=== PATIENT | male | born 1955 | race Caucasian/White ===

== ENCOUNTER 2019-02-09 20:00 | Emergency (ER) | payer MEDICARE, OTHER ==
[2019-02-09 20:55] VITALS: BP 171/88
[2019-02-09] MEDS ORDERED: Tetan/Diph/Pertus SYR(Tdap)* 0.5 ML SYR(BOOSTRIX) use SYR IM ONE (21:05)
--- NOTE | 2019-02-09 21:05 | UC ---
General HPI - HPI Summary HPI Summary: pt stepped on a loose board the came up and hit him in the L crenshaw 2 days ago. yesterday, he developed a blister in the center of the bruise. he denies fever. - History of Current Complaint Chief Complaint: UCLowerExtremity Stated Complaint: LT LEG INJURY S/P FALL 02/07 Time Seen by Provider: 02/09/19 20:58 Hx Obtained From: Patient, Family/Public Health Assistant Pain Intensity: 3 Associated Signs & Symptoms: Negative: Fever - Allergy/Home Medications Allergies/Adverse Reactions: Allergies Allergy/AdvReac Type Severity Reaction Status Date / Time No Known Allergies Allergy Verified 02/09/19 20:32 Home Medications: Home Medications Acetaminophen [Acetaminophen Extra Strength] 1,500 mg PO ONCE PRN 02/09/19 [ History Confirmed 02/09/19] Allopurinol TAB* [Zyloprim 100 MG TAB*] 200 mg PO DAILY 02/09/19 [History Confirmed 02/09/19] Aspirin [Aspir-Low] 81 mg PO DAILY 02/09/19 [History Confirmed 02/09/19] Atorvastatin* [Lipitor*] 20 mg PO QPM 02/09/19 [History Confirmed 02/09/19] Cholecalciferol (Vitamin D3) [Vitamin D3] 1,000 unit PO DAILY 02/09/19 [History Confirmed 02/09/19] Insulin Detemir (NF) [Levemir (NF)] 70 unit SUBCUT DAILY 02/09/19 [History Confirmed 02/09/19] Insulin NPH Hum/Reg Insulin Hm [Novolin 70-30 Flexpen] 3 ml SQ TID 02/09/19 [ History Confirmed 02/09/19] Lisinopril 40 mg PO BID 02/09/19 [History Confirmed 02/09/19] Pioglitazone HCl 30 mg PO DAILY 02/09/19 [History Confirmed 02/09/19] PMH/Surg Hx/FS Hx/Imm Hx - Additional Past Medical History Additional PMH: Gout Endocrine History: Diabetes, Dyslipidemia Cardiovascular History: Hypertension - Surgical History Surgical History: Yes Surgery Procedure, Year, and Place: Stents. Right foot injury - Family History Known Family History: Positive: Non-Contributory - Social History Alcohol Use: Rare Substance Use Type: None Smoking Status (MU): Never Smoked Tobacco - Immunization History Hx Tetanus, Diphtheria Vaccination: No Vaccination Up to Date: Yes Review of Systems All Other Systems Reviewed And Are Negative: No Constitutional: Negative: Fever Skin: Positive: Bruising - L crenshaw Musculoskeletal: Positive: Edema - BLE's-chronic, Other: - L crenshaw pain. Negative: Arthralgia Physical Exam Triage Information Reviewed: Yes Appearance: Well-Appearing Vital Signs: Initial Vital Signs Temp 98.1 F 02/09/19 20:43 Pulse 61 02/09/19 20:43 Resp 20 02/09/19 20:43 BP 171/88 02/09/19 20:43 Pulse Ox 100 02/09/19 20:43 Vital Signs Reviewed: Yes Eyes: Positive: Conjunctiva Clear Neck: Positive: Supple Respiratory: Positive: No respiratory distress Musculoskeletal: Positive: Other: - LLE: hip and knee are non tender. L crenshaw has a 4" area of bruising with a quarter size serous filled blister but no erythema or warmth. the crenshaw is tender to palpation. Mild pitting to lower legs( chronic) s/v/m to LLE is intact. Neurological: Positive: Alert Psychological: Positive: Age Appropriate Behavior Skin Exam: Normal Diagnostics - Radiology No standard instances Radiology Interpretation Completed By: ED Physician - l TIB/FIB=NAD Course/Dx - Differential Dx - Multi-Symptom Differential Diagnoses: Other - NO FX OR INFECTION. HX iddm, SOFT TISSUE CRENSHAW INJURY WITH EVOLVING BLISTER THUS WILL TX WITH BACTROBAN AND KELFEX PLUS CLOSE F /U - Diagnoses Provider Diagnosis: Contusion, Blister of leg, left Discharge - Sign-Out/Discharge Documenting (check all that apply): Patient Departure All imaging exams completed and their final reports reviewed: No - Discharge Plan Condition: Stable Disposition: HOME Prescriptions: Cephalexin CAP* [Keflex CAP*] 500 mg PO TID 7 Days #21 cap Mupirocin 2% OINT* [Bactroban 2 % Oint*] 1 applic TOPICAL BID 7 Days #1 tube Patient Education Materials: Contusion in Adults (ED), Blister (ED) Referrals: Jose De Jesus Healy MD [Primary Care Provider] - 5 Days - Billing Disposition and Condition Condition: STABLE Disposition: Home
[2019-02-09] MEDS ORDERED: Cephalexin CAP* 500 MG PO ONE (21:23)
--- NOTE | 2019-02-10 09:55 | UC ---
Course/Dx - Diagnoses Provider Diagnoses: Contusion, Blister of leg, left Discharge - Sign-Out/Discharge Documenting (check all that apply): Post-Discharge Follow Up All imaging exams completed and their final reports reviewed: Yes - Discharge Plan Condition: Stable Disposition: HOME Prescriptions: Cephalexin CAP* [Keflex CAP*] 500 mg PO TID 7 Days #21 cap Mupirocin 2% OINT* [Bactroban 2 % Oint*] 1 applic TOPICAL BID 7 Days #1 tube Patient Education Materials: Contusion in Adults (ED), Blister (ED) Referrals: Jose De Jesus Healy MD [Primary Care Provider] - 5 Days - Billing Disposition and Condition Condition: STABLE Disposition: Home
== END 2019-02-09 21:38 | disposition home or self-care (01) ==
LOC: UCCORT 20:00
DX: S80.822A Blister (nonthermal), left lower leg, initial encounter (principal); S80.12XA Contusion of left lower leg, initial encounter; W22.8XXA Striking against or struck by other objects, initial encounter; Y92.9 Unspecified place or not applicable; Z23 Encounter for immunization; E11.9 Type 2 diabetes mellitus without complications; I10 Essential (primary) hypertension; E78.5 Hyperlipidemia, unspecified; M10.9 Gout, unspecified; Z79.82 Long term (current) use of aspirin; Z79.4 Long term (current) use of insulin; Z79.899 Other long term (current) drug therapy; X58.XXXA Exposure to other specified factors, initial encounter
CPT/HCPCS: 90471; 90715; 99202; A9270-GY; G0463

== ENCOUNTER 2019-05-25 10:45 | Inpatient (IN) | payer MEDICARE, OTHER ==
[2019-05-25 12:11] LABS: ABS Basophils 0.1 10^3/ul (0-0.2); ABS Eosinophils 0.1 10^3/ul (0-0.6); ABS Lymphocytes 2.1 10^3/ul (1.0-4.8); ABS Monocytes 0.6 10^3/ul (0-0.8); Eosinophil % 0.9 %; Hematocrit 42 % (42-52); Hemoglobin 14.5 g/dL (14.0-18.0); Lymphocyte % 24.2 %; Mean Corpuscular HGB Conc 35 g/dL (31-36); Mean Corpuscular Hemoglobin 30 pg (27-31); Mean Corpuscular Volume 86 fL (80-94); Mean Platelet Volume 7.6 fL (7.4-10.4); Nucleated Red Blood Cells % 0.1; Platelet Count 178 10^3/uL (150-450); Red Blood Count 4.85 10^6 /uL (4.18-5.48); Red Cell Distribution Width 14 % (10-15); White Blood Count 8.9 10^3/uL (3.5-10.8)
[2019-05-25 12:27] LABS: ALT 16 U/L (7-52); AST 13 U/L (13-39); Albumin 3.9 g/dL (3.2-5.2); Albumin/Globulin Ratio 1.4 (1-3); Alkaline Phosphatase 76 U/L (34-104); Anion Gap 5 mmol/L (2-11); BUN/Creatinine Ratio 12.5 (8-20); Blood Urea Nitrogen 17 mg/dL (6-24); CO2 Carbon Dioxide 26 mmol/L (22-32); Calcium 8.6 mg/dL (8.6-10.3); Chloride 106 mmol/L (101-111); EGFR African American 63.6 (>60); EGFR Non-African American 52.6 (>60); Globulin 2.8 g/dL (2-4); Glucose 130 mg/dL (70-100); Potassium 4.3 mmol/L (3.5-5.0); Sodium 137 mmol/L (135-145); Total Protein 6.7 g/dL (6.4-8.9)
[2019-05-25 12:40] LABS: Acetaminophen < 15 mcg/mL; Alcohol < 10 mg/dL (<10); Salicylate < 2.50 mg/dL (<30)
[2019-05-25 12:44] LABS: Urine Appearance Clear; Urine Bilirubin Negative (Negative); Urine Blood Negative (Negative); Urine Color Yellow; Urine Glucose Negative (Negative); Urine Ketones Negative (Negative); Urine Nitrite Negative (Negative); Urine Protein Negative (Negative); Urine Specific Gravity 1.011 (1.010-1.030); Urine Urobilinogen Negative (Negative)
--- NOTE | 2019-05-25 12:52 | ED ---
Altered Mental Status - HPI Summary HPI Summary: Pt is a 64 y/o M presenting to the ED with a chief complaint of confusion. He states he is confused, nervous, and scared, and it has been worse for the past week, since he was d/gianluca from the [facility]. He believes he is going to be thrown out of his apartment. HE reports a mild headache, some neck pain, and sleep disturbance. He denies abd pain, back pain, SI/HI, or drug/alcohol use. He has also had recent medication changes. - History Of Current Complaint Chief Complaint: EDMentalHealth Stated Complaint: MHE PER EMS Time Seen by Provider: 05/25/19 10:48 Hx Obtained From: Patient Onset/Duration: Still Present, Gradually Timing: Constant, Lasting Weeks Severity Initially: Moderate Severity Currently: Moderate Character: Confusion Aggravating Factor(s): Unknown Alleviating Factor(s): Unknown - Allergies/Home Medications Allergies/Adverse Reactions: Allergies Allergy/AdvReac Type Severity Reaction Status Date / Time No Known Allergies Allergy Verified 05/25/19 10:52 Home Medications: Home Medications Carvedilol 3.125 mg PO BID 05/25/19 [History Confirmed 05/25/19] Cholecalciferol (Vitamin D3) [Vitamin D3] 1 tab PO DAILY 05/25/19 [History Confirmed 05/25/19] Insulin ASPART (NF) [Novolog (NF)] 34 units SUBCUT TID 05/25/19 [History Confirmed 05/25/19] Isosorbide Mononitrate [Isosorbide Mononitrate ER] 30 mg PO DAILY 05/25/19 [ History Confirmed 05/25/19] Losartan Potassium [Cozaar] 50 mg PO DAILY 05/25/19 [History Confirmed 05/25/19] Sertraline HCl [Zoloft] 12.5 mg PO BEDTIME 05/25/19 [History Confirmed 05/25/19] PMH/Surg Hx/FS Hx/Imm Hx Previously Healthy: Yes Endocrine/Hematology History: Reports: Hx Diabetes Cardiovascular History: Reports: Hx Hypertension Psychiatric History: Reports: Hx Post Traumatic Stress Disorder - Surgical History Surgery Procedure, Year, and Place: Stents. Right foot injury Infectious Disease History: No Infectious Disease History: Denies: Traveled Outside the [place] in Last 30 Days - Family History Known Family History: Negative: Renal Disease - Social History Alcohol Use: Rare Hx Substance Use: No Substance Use Type: Reports: None Hx Tobacco Use: No Smoking Status (MU): Never Smoked Tobacco Review of Systems Positive: Other - sleep disturbance Negative: Abdominal Pain Positive: Other - mild neck pain. Negative: Myalgia - back pain Positive: Headache Negative: Anxious, Other - SI/HI All Other Systems Reviewed And Are Negative: Yes Physical Exam - Summary Physical Exam Summary: Constitutional: Well-developed, Well-nourished, Alert. (-) Distressed Skin: Warm, Dry HENT: Normocephalic; Atraumatic Eyes: Conjunctiva normal Neck: Musculoskeletal ROM normal neck. (-) JVD, (-) Stridor, (-) Tracheal deviation Cardio: Rhythm regular, rate normal, Heart sounds normal; Intact distal pulses; The pedal pulses are 2+ and symmetric. Radial pulses are 2+ and symmetric. (-) Murmur Pulmonary/Chest wall: Effort normal. (-) Respiratory distress, (-) Wheezes, (-) Rales Abd: Soft, (-) tenderness, (-) Distension, (-) Guarding, (-) Rebound Musculoskeletal: (-) Edema Lymph: (-) Cervical adenopathy Neuro: Alert, Oriented x3 Psych: Mood and affect Normal, no auditory/visual hallucinations Triage Information Reviewed: Yes Vital Signs On Initial Exam: Initial Vitals Temp Pulse Resp BP Pulse Ox 97.6 F 82 16 144/88 98 05/25/19 10:50 05/25/19 10:50 05/25/19 10:50 05/25/19 10:50 05/25/19 10:50 Vital Signs Reviewed: Yes - Kate Coma Scale Best Eye Response: 4 - Spontaneous Best Motor Response: 6 - Obeys Commands Best Verbal Response: 5 - Oriented Coma Scale Total: 15 Diagnostics - Vital Signs Vital Signs Temp Pulse Resp BP Pulse Ox 05/25/19 10:50 97.6 F 82 16 144/88 98 - Laboratory Lab Results: Lab Results 05/25/19 05/25/19 05/25/19 Range/Units 12:04 12:04 12:31 WBC 8.9 (3.5-10.8) 10^3/uL RBC 4.85 (4.18-5.48) 10^6 /uL Hgb 14.5 (14.0-18.0) g/dL Hct 42 (42-52) % MCV 86 (80-94) fL MCH 30 (27-31) pg MCHC 35 (31-36) g/dL RDW 14 (10-15) % Plt Count 178 (150-450) 10^3/uL MPV 7.6 (7.4-10.4) fL Neut % (Auto) 68.0 % Lymph % (Auto) 24.2 % Barron % (Auto) 6.3 % Eos % (Auto) 0.9 % Baso % (Auto) 0.6 % Absolute Neuts (auto) 6.0 (1.5-7.7) 10^3/ul Absolute Lymphs (auto) 2.1 (1.0-4.8) 10^3/ul Absolute Monos (auto) 0.6 (0-0.8) 10^3/ul Absolute Eos (auto) 0.1 (0-0.6) 10^3/ul Absolute Basos (auto) 0.1 (0-0.2) 10^3/ul Absolute Nucleated RBC 0.0 10^3/ul Nucleated RBC % 0.1 Sodium 137 (135-145) mmol/L Potassium 4.3 (3.5-5.0) mmol/L Chloride 106 (101-111) mmol/L Carbon Dioxide 26 (22-32) mmol/L Anion Gap 5 (2-11) mmol/L BUN 17 (6-24) mg/dL Creatinine 1.36 H (0.67-1.17) mg/dL Est GFR ( Amer) 63.6 (>60) Est GFR (Non-Af Amer) 52.6 (>60) BUN/Creatinine Ratio 12.5 (8-20) Glucose 130 H (70-100) mg/dL Calcium 8.6 (8.6-10.3) mg/dL Total Bilirubin 0.70 (0.2-1.0) mg/dL AST 13 (13-39) U/L ALT 16 (7-52) U/L Alkaline Phosphatase 76 (34-104) U/L Total Protein 6.7 (6.4-8.9) g/dL Albumin 3.9 (3.2-5.2) g/dL Globulin 2.8 (2-4) g/dL Albumin/Globulin Ratio 1.4 (1-3) TSH Pending Urine Color Yellow Urine Appearance Clear Urine pH 6.0 (5-9) Ur Specific [place] 1.011 (1.010-1.030) Urine Protein Negative (Negative) Urine Ketones Negative (Negative) Urine Blood Negative (Negative) Urine Nitrate Negative (Negative) Urine Bilirubin Negative (Negative) Urine Urobilinogen Negative (Negative) Ur Leukocyte Esterase Negative (Negative) Urine Glucose Negative (Negative) Salicylates < 2.50 (<30) mg/dL Acetaminophen < 15 mcg/mL Serum Alcohol < 10 (<10) mg/dL Result Diagrams: 05/25/19 12:04 05/25/19 12:04 Lab Statement: Any lab studies that have been ordered have been reviewed, and results considered in the medical decision making process. - CT Brain CT CT Interpretation Completed By: Radiologist Summary of CT Findings: Negative unenhanced brain CT. Altered Mental Statu Course/Dx - Course Course Of Treatment: Pt is a 64 y/o M presenting to the ED with a chief complaint of confusion. He states he is confused, nervous, and scared, and it has been worse for the past week. He reports a mild headache, some neck pain, and sleep disturbance. He denies abd pain, back pain, SI/HI, or drug/alcohol use. He has also had recent medication changes. Pt's physical exam is nml, he denies visual or auditory hallucinations. Lab results are WNL. Brain CT shows negative unenhanced brain CT. [facility] informed me that as per Dr. Rivera, the pt will be voluntarily admitted to the BSU with a dx of psychosis. - Diagnoses Provider Diagnoses: Psychosis Discharge ED - Sign-Out/Discharge Documenting (check all that apply): Patient Departure - Discharge Plan Condition: Stable Disposition: [facility] Referrals: Jose De Jesus Healy MD [Primary Care Provider] - - Attestation Statements Document Initiated by Scribe: Yes Documenting Scribe: Puja Connors Provider For Whom Carmela is Documenting (Include Credential): Hammad Martin MD. Scribe Attestation: Puja Rodriguez, scribed for Hammad Martin MD. on 05/25/19 at 1413. Status of Scribe Document: Ready
[2019-05-25 12:55] LABS: TSH (Thyroid Stimulating Horm) 1.34 mcIU/mL (0.34-5.60)
[2019-05-25 13:11] LABS: Urine Benzodiazepine Screen None Detected (None Detect); Urine Opiates Screen None Detected (None Detect)
[2019-05-25] MEDS ORDERED: Al Hydrox/Mg Hydrox/Simet LIQ* 30 ML UDC PO PRN (14:27)
[2019-05-25] MEDS ORDERED: hydrOXYzine HCL TAB* 50 MG PO PRN (14:30)
--- NOTE | 2019-05-25 14:55 | HP ---
H&P (Free Text) History and Physical: Justification for admission: Immediate Safety. CC " I have been sad" The patient was brought to [facility] by his son. He has expressed feeling paranoid the last 2-3 weeks but was unable to identify recent changes in his life. He reported recent stressors to be " everything". He is afraid that the government is going to come after him and take his money. He reported feeling sad and depressed lately. He stated that he sometimes thinks people are in his house, and that the government is spying on him with cameras. He denied access to firearms or stockpiles of medications. He reported waking up early in the morning. appetite. He reported getting scared and cutting himself with his fingernail. The patient denied homicidal ideation intent or plan. The patient denied visual hallucinations. The patient reported hearing the voice of his who 16 years ago. MDD Reported feeling depressed with feelings of hopelessness. Reported diminished appetite, interruption of sleep, and feeling tired throughout the day. He has loss of energy with lack of motivation to complete tasks. Anxiety Denied having symptoms of anxiety such as having times where heart feels that it is beating out of chest , sweaty palms, or shallow breathing. Denied having uncomfortable or intrusive thoughts. Denied feeling restless, high strung, or worrying too much most of the time. Bipolar Denied symptoms of radha such as having many ideas at once. Denied increased talkativeness where no one can interrupt. Denied feeling irritable most of the time while having an persistent abundance of energy most of the day without the use of energy drinks, stimulants, or recreational drug use. Denied an increase in intensity in goal directed activities. Denied having the decreased need to sleep for days , having prolonged elevated mood , or feeling on top of the world. Denied impulsive risky sexual encounters. Denied spending money recklessly , going on spending sprees wiping out savings. Denied impulsively traveling out of town or country, having super perez, and unrealistic wealth or fame. Psychosis Does not endorse hearing things that other people do not hear or seeing things other people do not see. Denied feeling that TV is making references. Denied feeling that people are spying , following , or reading their thoughts. Phobias: Patient denied having excessive fear of a particular thing or situation. Eating disorders: Patient denied having excessive eating habits or feelings of guilt after eating. Denied repeated episodes of self induced vomiting after eating. PTSD Denied flashbacks, and avoidance of a prior traumatic event. Reported having frequent nightmares and waking up scared and frightened. PAST PSYCHIATRIC HISTORY: Prior Diagnosis : Unspecified depressive disorder History of past Psychiatric Hospitalizations: No prior psychiatric admission. History of past suicide/homicide attempts : Denied past suicide attempts. Denied past homicidal incidents. Outpatient follow-up: [facility] in [place], [place] Medications: Past trials of medications include zoloft 25mg daily Guardianship: None. FAMILY HISTORY: - Suicide: Denied family history of suicide. - Mental illness: Denied a history of mental health in immediate family members. - Substance abuse: Denied substance abuse among family members. SUBSTANCE ABUSE HISTORY: Denied using alcohol, tobacco, heroin cocaine or other illicit substances. Denied abusing pills for recreational use. Denied past Substance abuse treatment. SOCIAL HISTORY: Denied a history of sexual and or physical abuse in childhood Born in [place] and raised by both parents. His daughter at at 34 from what describes as kidney stones. 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 Status Post angioplasty with 3 stents. - Allergies: Denied drug or other allergies. Physical Exam: Please see ED note Mental Status Exam on Admission APPEARANCE : 64 year old male who appears stated age. He appears obese. Patient is not malodourous, and appears to have fair hygiene and grooming. BEHAVIOR: Cooperative, calm EYE CONTACT: Fair PSYCHOMOTOR ACTIVITY: No psychomotor agitation or retardation. MOVEMENTS: No abnormal movements observed. SPEECH : Normal rate, rhythm, volume and tone. MOOD : "Sad " AFFECT : Type is depressed Range is restricted THOUGHT PROCESS: Formulated and organized in a logical, linear goal directed manner. THOUGHT CONTENT: Paranoid delusions PERCEPTION: No current auditory or visual hallucinations. Doesnt appear to be responding to internal cues. No evidence of depersonalization , de-realization, or illusions SUICIDALITY Denied suicidal ideation, intent or plan. HOMICIDALITY Denied homicidal ideation, intent or plan. Insight/judgment: Poor insight and judgment ORIENTATION: Oriented to self, location, and time. Diagnosis on Admission: Major Depressive Disorder with psychotic features, severe. Assessment: 64 year old with history of depression came to the hospital expressing paranoid delusions and was admitted to the [facility] at [facility]. Plan #Admit to BSU, Q15 minute observation. Start regular diet. Encourage participation in activities on the milieu. #Patient evaluated in ED and was determined by the emergency room Physician to be medically fit for admission to the BSU. # Justification for Admission: For immediate safety per outlined in the [facility] Hygiene Code. # The patient requires psychiatric inpatient admission at this time to assure safety, receive treatment and work toward stabilization. # Labs ordered: CBC, CMP, UDS, TSH, HBA1c, TSH, Toxicology screen, Urine analysis, and lipid profile. # EKG ordered for risk of QT prolongation of antipsychotic medication. # Obtain collateral information once release is signed. # Collaboration with [employer] Est[employer]ator Kendal Aguillon #Goals before discharge include: Psychiatric stabilization # Start abilify 2mg daily for paranoia # continue zoloft 25mg at night for depression. Tentative Discharge: Pending psychiatric stabilization Acetaminophen (Tylenol Tab*) 650 mg PO Q4H PRN PRN Reason: for pain; or Temp >101 F Last Admin: 05/25/19 15:29 Dose: 650 mg Al Hydrox/Mg Hydrox/Simethicone (Maalox Plus*) 30 ml PO Q4H PRN PRN Reason: INDIGESTION Allopurinol (Zyloprim Tab*) 200 mg PO DAILY [facility] Last Admin: 05/26/19 08:47 Dose: 200 mg Aripiprazole (Abilify Tab*) 2 mg PO DAILY [facility] Last Admin: 05/26/19 08:49 Dose: 2 mg Aspirin (Aspirin Ec Tab*) 81 mg PO DAILY [facility] Last Admin: 05/26/19 08:49 Dose: 81 mg Atorvastatin Calcium (Lipitor*) 20 mg PO QPM [facility] Last Admin: 05/25/19 16:54 Dose: 20 mg Carvedilol (Coreg Tab*) 3.125 mg PO BID [facility] Last Admin: 05/26/19 08:47 Dose: 3.125 mg Cholecalciferol (Vitamin D Tab*) 1,000 units PO DAILY [facility] Last Admin: 05/26/19 08:49 Dose: 1,000 units Hydroxyzine HCl (Atarax Tab*) 50 mg PO Q6H PRN PRN Reason: anxiety Insulin Glargine (Lantus(*)) 56 units SUBCUT DAILY [facility] Last Admin: 05/26/19 08:58 Dose: 56 units Insulin Human Lispro (Humalog*) 34 units SUBCUT TID AC [facility] Last Admin: 05/26/19 12:01 Dose: 34 unit Isosorbide Mononitrate (Imdur Er Tab*) 30 mg PO DAILY [facility] Last Admin: 05/26/19 08:47 Dose: 30 mg Losartan Potassium (Cozaar Tab*) 50 mg PO DAILY [facility] Last Admin: 05/26/19 08:49 Dose: 50 mg Pioglitazone HCl (Actos Tab*) 30 mg PO DAILY [facility] Last Admin: 05/26/19 08:47 Dose: 30 mg Sertraline HCl (Zoloft*) 25 mg PO BEDTIME [facility] Last Admin: 05/25/19 21:30 Dose: 25 mg Sodium 137 mmol/L (135-145) 05/25/19 12:04 Potassium 4.3 mmol/L (3.5-5.0) 05/25/19 12:04 BUN 17 mg/dL (6-24) 05/25/19 12:04 Creatinine 1.36 mg/dL (0.67-1.17) H 05/25/19 12:04 Calcium 8.6 mg/dL (8.6-10.3) 05/25/19 12:04 AST 13 U/L (13-39) 05/25/19 12:04 ALT 16 U/L (7-52) 05/25/19 12:04 Vital Signs Temp Pulse Resp BP Pulse Ox 98.7 F 86 15 153/90 94 05/25/19 15:01 05/25/19 15:01 05/25/19 15:01 05/25/19 15:01 05/25/19 15:01
[2019-05-25] MEDS: Acetaminophen TAB* 325 MG PO PRN (15:29)
[2019-05-25] MEDS: Atorvastatin* 20 MG TAB PO SCH (16:54)
[2019-05-25] MEDS: Insulin LISPRO* 1 UNITS UNIT SUBCUT SCH (16:55)
[2019-05-25] MEDS: Carvedilol TAB* 3.125 MG PO SCH (21:29)
[2019-05-25] MEDS: Sertraline* 25 MG TAB PO SCH (21:30)
[2019-05-26] MEDS: Allopurinol TAB* 100 MG PO SCH (08:47)
[2019-05-26] MEDS: Carvedilol TAB* 3.125 MG PO SCH ×2 (08:47→20:41)
[2019-05-26] MEDS: Pioglitazone TAB* 30 MG PO SCH (08:47)
[2019-05-26] MEDS: Isosorbide Mononitrate ER TAB* 30 MG PO SCH (08:47)
[2019-05-26] MEDS: Losartan TAB* 25 MG PO SCH (08:49)
[2019-05-26] MEDS: Cholecalciferol TAB* 1000 UNITS PO SCH (08:49)
[2019-05-26] MEDS: ARIPiprazole TAB* 2 MG PO SCH (08:49)
[2019-05-26] MEDS: Aspirin EC TAB* 81 MG TAB.EC PO SCH (08:49)
[2019-05-26] MEDS: Insulin GLARGINE(*) 1 UNITS UNIT SUBCUT SCH (08:58)
[2019-05-26] MEDS: Insulin LISPRO* 1 UNITS UNIT SUBCUT SCH ×3 (08:59→18:17)
[2019-05-26 09:06] LABS: HDL Cholesterol 29.7 mg/dL
[2019-05-26] MEDS: Atorvastatin* 20 MG TAB PO SCH (19:04)
[2019-05-26] MEDS: Sertraline* 25 MG TAB PO SCH (20:41)
[2019-05-27] MEDS: Carvedilol TAB* 3.125 MG PO SCH ×2 (09:00→21:06)
[2019-05-27] MEDS: Aspirin EC TAB* 81 MG TAB.EC PO SCH (09:00)
[2019-05-27] MEDS: Pioglitazone TAB* 30 MG PO SCH (09:00)
[2019-05-27] MEDS: Allopurinol TAB* 100 MG PO SCH (09:00)
[2019-05-27] MEDS: Isosorbide Mononitrate ER TAB* 30 MG PO SCH (09:00)
[2019-05-27] MEDS: ARIPiprazole TAB* 2 MG PO SCH (09:01)
[2019-05-27] MEDS: Cholecalciferol TAB* 1000 UNITS PO SCH (09:01)
[2019-05-27] MEDS: Losartan TAB* 25 MG PO SCH (09:01)
[2019-05-27] MEDS: Insulin LISPRO* 1 UNITS UNIT SUBCUT SCH ×3 (09:02→16:57)
[2019-05-27] MEDS: Insulin GLARGINE(*) 1 UNITS UNIT SUBCUT SCH (09:03)
[2019-05-27] MEDS: Acetaminophen TAB* 325 MG PO PRN ×2 (11:27→19:10)
[2019-05-27] MEDS: Atorvastatin* 20 MG TAB PO SCH (16:58)
--- NOTE | 2019-05-27 17:08 | PN ---
Subjective - Subjective Date of Service: 05/27/19 Service Type: [id number] Hosp care 15 min low complexity Subjective: Reports feeling better since starting Abilify 2 mg and Zoloft 25 mg daily. Denies any side effects. Reports paranoia has gone away regarding government surveilance. Sleeping "fairly decent", but snoring is keeping roommates awake. Objective - General Observations Appearance: Disheveled Appears Stated Age: Yes Stature: WNL Posture: WNL Eye Contact: Average Behavior/Activity: WNL - Interaction Observations Attitude Towards Examiner: Cooperative Stated Mood: Euthymic Affect: Full Speech Pattern/Tone: Clear Thought Process: Coherent Perception: WNL Thought Content: WNL Hallucination Type: None Delusion Type: None - Cognitive Function Orientation: A&O x 4 Level of Consciousness: Awake, Alert, Appropriate Cognition: WNL Estimated Intelligence: Normal Insight: WNL Judgment Within Normal Limits: Yes Ability to Make Reasonable Decisions: Mildly Impaired - Medication Compliance Cooperative with Inpatient Medication Regimen: Yes - Group Participation Participates in Group Activities: Yes Assessment - Assessment Merits Inpatient Hospitalization: For Stabilization, Consolidate Improvements, For Discharge Planning, Pending Safe DC Plan Clinical Impression: Andres reported paranoia that the government might be surveiling him because he is seeking compensation for disablities stemming from injuries while serving in the [employer] in 1972. He reports good effect already of low dose Abilify and Zoloft against paranoia. Denies any dangerour intent or plan. Plan - Plan Treatment Plan: Name: ANDRES PETERS Birthdate: 1955 [id number] Continue meds and milieu therapy. Medications: Current Medications Acetaminophen (Tylenol Tab*) 650 mg PO Q4H PRN PRN Reason: for pain; or Temp >101 F Last Admin: 05/27/19 11:27 Dose: 650 mg Al Hydrox/Mg Hydrox/Simethicone (Maalox Plus*) 30 ml PO Q4H PRN PRN Reason: INDIGESTION Allopurinol (Zyloprim Tab*) 200 mg PO DAILY [facility] Last Admin: 05/27/19 09:00 Dose: 200 mg Aripiprazole (Abilify Tab*) 2 mg PO DAILY [facility] Last Admin: 05/27/19 09:01 Dose: 2 mg Aspirin (Aspirin Ec Tab*) 81 mg PO DAILY [facility] Last Admin: 05/27/19 09:00 Dose: 81 mg Atorvastatin Calcium (Lipitor*) 20 mg PO QPM [facility] Last Admin: 05/27/19 16:58 Dose: 20 mg Carvedilol (Coreg Tab*) 3.125 mg PO BID [facility] Last Admin: 05/27/19 09:00 Dose: 3.125 mg Cholecalciferol (Vitamin D Tab*) 1,000 units PO DAILY [facility] Last Admin: 05/27/19 09:01 Dose: 1,000 units Hydroxyzine HCl (Atarax Tab*) 50 mg PO Q6H PRN PRN Reason: anxiety Insulin Glargine (Lantus(*)) 56 units SUBCUT DAILY [facility] Last Admin: 05/27/19 09:03 Dose: 56 units Insulin Human Lispro (Humalog*) 34 units SUBCUT TID AC [facility] Last Admin: 05/27/19 16:57 Dose: 34 unit Isosorbide Mononitrate (Imdur Er Tab*) 30 mg PO DAILY [facility] Last Admin: 05/27/19 09:00 Dose: 30 mg Losartan Potassium (Cozaar Tab*) 50 mg PO DAILY [facility] Last Admin: 05/27/19 09:01 Dose: 50 mg Pioglitazone HCl (Actos Tab*) 30 mg PO DAILY [facility] Last Admin: 05/27/19 09:00 Dose: 30 mg Sertraline HCl (Zoloft*) 25 mg PO BEDTIME [facility] Last Admin: 05/26/19 20:41 Dose: 25 mg - Discharge Plan Discharge Plan: Outpatient Follow Up Outpatient Program: [facility]
[2019-05-27] MEDS: Sertraline* 25 MG TAB PO SCH (21:06)
[2019-05-28] MEDS: Pioglitazone TAB* 30 MG PO SCH (08:25)
[2019-05-28] MEDS: Aspirin EC TAB* 81 MG TAB.EC PO SCH (08:25)
[2019-05-28] MEDS: Cholecalciferol TAB* 1000 UNITS PO SCH (08:25)
[2019-05-28] MEDS: Carvedilol TAB* 3.125 MG PO SCH ×2 (08:25→20:23)
[2019-05-28] MEDS: ARIPiprazole TAB* 2 MG PO SCH (08:25)
[2019-05-28] MEDS: Allopurinol TAB* 100 MG PO SCH (08:25)
[2019-05-28] MEDS: Losartan TAB* 25 MG PO SCH (08:25)
[2019-05-28] MEDS: Isosorbide Mononitrate ER TAB* 30 MG PO SCH (08:26)
[2019-05-28] MEDS: Insulin LISPRO* 1 UNITS UNIT SUBCUT SCH ×2 (09:32→16:55)
--- NOTE | 2019-05-28 11:01 | PN ---
Subjective - Subjective Date of Service: 05/28/19 Service Type: 08434 Hosp care 35 min high complexity Subjective: Nursing Report: Patient was visible on unit, no behavioral incidents. Slept overnight. He is attending group activities. CC: "Just fine" Patient was seen and evaluated in the common room. The patient said I know I could have been mistaken about the government coming after me. His son came today for a family meeting and confirmed that the patient has no access to firearms or stockpiles of medications. He reported having adequate appetite and sleep. The patient reports attending and participating in day groups. Per nursing no behavioral issues or overnight events reported. Patient reported that he is tolerating medications without side effects. Objective - General Observations Appears Stated Age: Yes Stature: Overweight Posture: Slumped Eye Contact: Average Behavior/Activity: Slowed - Interaction Observations Attitude Towards Examiner: Cooperative Stated Mood: Dysphoric Affect: Blunted Speech Pattern/Tone: Appropriate Thought Process: Coherent Perception: WNL Thought Content: Paranoid Thought Process: Lethality: Paranoid Ideation Hallucination Type: None Delusion Type: None - Cognitive Function Orientation: A&O x 4 Level of Consciousness: Awake - Medication Compliance Cooperative with Inpatient Medication Regimen: Yes - Group Participation Participates in Group Activities: Yes Assessment - Assessment Merits Inpatient Hospitalization: For Immediate Safety Clinical Impression: Andres reported paranoia that the government might be surveiling him because he is seeking compensation for disablities stemming from injuries while serving in the [employer] in 1972. He reports good effect already of low dose Abilify and Zoloft against paranoia. Denies any dangerour intent or plan. Plan - Plan Treatment Plan: Name: ANDRES PETERS Birthdate: 1955 [id number] #Q30 minute observation with staff pass # The patient requires psychiatric inpatient admission at this time to assure safety, receive treatment and work toward stabilization. # EKG ordered for risk of QT prolongation of antipsychotic medication. # Obtain collateral information once release is signed. # Collaboration with School Bus [employer] Kendal Aguillon # Diabetic diet # Son visited today and provided collateral information #Patient plans to follow up at the [facility] # Medicine team consulted to address medical conditions such as diabetes/ HTN management # Continue Abilify 2mg daily for paranoia # Increase zoloft 50mg PO daily for depression. #Goals before discharge include: Psychiatric stabilization Tentative Discharge: Tuesday Sodium 137 mmol/L (135-145) 05/25/19 12:04 Potassium 4.3 mmol/L (3.5-5.0) 05/25/19 12:04 BUN 17 mg/dL (6-24) 05/25/19 12:04 Creatinine 1.36 mg/dL (0.67-1.17) H 05/25/19 12:04 Hemoglobin A1c 6.8 % (4.0-5.6) H 05/26/19 08:20 Calcium 8.6 mg/dL (8.6-10.3) 05/25/19 12:04 AST 13 U/L (13-39) 05/25/19 12:04 ALT 16 U/L (7-52) 05/25/19 12:04 Triglycerides 102 mg/dL 05/26/19 08:20 Cholesterol 121 mg/dL 05/26/19 08:20 LDL Cholesterol 71 mg/dL 05/26/19 08:20 Vital Signs Temp Pulse Resp BP Pulse Ox 98.5 F 80 16 172/94 100 05/28/19 08:00 05/28/19 08:00 05/28/19 08:00 05/28/19 08:00 05/28/19 08:00 Continued Medication Management: Continue Outpt Medication Medications: Current Medications Acetaminophen (Tylenol Tab*) 650 mg PO Q4H PRN PRN Reason: for pain; or Temp >101 F Last Admin: 05/27/19 19:10 Dose: 650 mg Al Hydrox/Mg Hydrox/Simethicone (Maalox Plus*) 30 ml PO Q4H PRN PRN Reason: INDIGESTION Allopurinol (Zyloprim Tab*) 200 mg PO DAILY [facility] Last Admin: 05/28/19 08:25 Dose: 200 mg Aripiprazole (Abilify Tab*) 2 mg PO DAILY [facility] Last Admin: 05/28/19 08:25 Dose: 2 mg Aspirin (Aspirin Ec Tab*) 81 mg PO DAILY [facility] Last Admin: 05/28/19 08:25 Dose: 81 mg Atorvastatin Calcium (Lipitor*) 20 mg PO QPM [facility] Last Admin: 05/27/19 16:58 Dose: 20 mg Carvedilol (Coreg Tab*) 3.125 mg PO BID [facility] Last Admin: 05/28/19 08:25 Dose: 3.125 mg Cholecalciferol (Vitamin D Tab*) 1,000 units PO DAILY [facility] Last Admin: 05/28/19 08:25 Dose: 1,000 units Hydroxyzine HCl (Atarax Tab*) 50 mg PO Q6H PRN PRN Reason: anxiety Insulin Human Lispro (Humalog*) 0 units SUBCUT Q6HR HERBERT; Protocol Isosorbide Mononitrate (Imdur Er Tab*) 30 mg PO DAILY [facility] Last Admin: 05/28/19 08:26 Dose: 30 mg Losartan Potassium (Cozaar Tab*) 50 mg PO DAILY [facility] Last Admin: 05/28/19 08:25 Dose: 50 mg Pioglitazone HCl (Actos Tab*) 30 mg PO DAILY [facility] Last Admin: 05/28/19 08:25 Dose: 30 mg Sertraline HCl (Zoloft*) 50 mg PO DAILY [facility] - Discharge Plan Discharge Plan: Inpatient Hospitalization
--- NOTE | 2019-05-28 11:49 | PN ---
[facility]: Group Therapy Note - Service Type Service Type: 29405 Group Psychotherapy - Cognitive Behavioral Group Therapy ( CBT):Patient was attentive and participatory in CBT programming this morning, and remained in good behavioral control. Patient expressed positive insights regarding relevant treatment interventions and goals.
[2019-05-28] MEDS ORDERED: Insulin LISPRO* 1 UNITS UNIT SUBCUT SCH (12:00)
[2019-05-28] MEDS ORDERED: Dextrose 50% VIAL 50 ml IV PUSH PRN (12:01)
[2019-05-28] MEDS: Sertraline* 50 MG TAB PO SCH (13:38)
[2019-05-28 14:13] LABS: BUN/Creatinine Ratio 14.4 (8-20); Calcium 9.2 mg/dL (8.6-10.3); EGFR African American 50.2 (>60); EGFR Non-African American 41.5 (>60); Potassium 4.6 mmol/L (3.5-5.0)
--- NOTE | 2019-05-28 15:35 | CONS ---
CONSULTATION REPORT: DATE OF CONSULT: 05/28/19 REQUESTING PROVIDER: Dr. Powell. REASON FOR CONSULTATION: Episode of hypoglycemia. HISTORY OF PRESENT ILLNESS: David Marquez is a 64-year-old white male with past medical history significant for diabetes mellitus type 2, coronary artery disease status post 3 stents, hypertension, depression, CKD, and gout who presented to [facility] Emergency Department on 05/25/19. The patient was admitted to [facility] for paranoia and depression. He tells me he is feeling better since being hospitalized. The patient and his son correlate that he has been taking 7 units of subcu insulin detemir daily and 34 units of insulin aspart subcu with meals in addition to pioglitazone to control his diabetes. The patient tells me he follows with the [facility] in [place] who has been adjusting his medications. He tells me he has been on sliding scale insulin in the past, but because his diet was poor at that time, he needed to be on more insulin. He tells me that more recently he has been having better control of his carbohydrate intake and he gets Meals- on-Wheels with a carbohydrate consistent diet. He additionally corroborates that he has been told he has had poor kidney function in the past. He additionally tells me that he has chronic lower extremity edema. He had an echocardiogram performed outpatient by his [facility] primary care and he is unsure of what the results were. Regarding the episode of hypoglycemia on 05/26/19. The patient tells me that he was feeling dizzy when he stood up, which prompted the [facility] staff to check his blood glucose, which was initially 42. The patient tells me he has no complaints. He has not been feeling dizzy or lightheaded since the episode of hypoglycemia a few days ago. He denies visual changes, chest pain, difficulty breathing. PAST MEDICAL HISTORY: 1. Diabetes mellitus type 2. 2. Coronary artery disease status post 3 stents. 3. Hypertension. 4. CKD secondary to poorly controlled diabetes and hypertension. 5. Gout. 6. Depression. PAST SURGICAL HISTORY: Right ankle ORIF. HOME MEDICATIONS: 1. Allopurinol 200 mg p.o. daily. 2. Losartan 500 mg p.o. daily. 3. Pioglitazone 30 mg p.o. daily. 4. Aspirin 81 mg p.o. daily. 5. Isosorbide mononitrate 30 mg p.o. daily. 6. Lipitor 20 mg p.o. daily. 7. Vitamin D3 1 tab p.o. daily. 8. Carvedilol 3.125 mg p.o. b.i.d. 9. Insulin detemir 70 units subcu daily. 10. Insulin aspart 34 units subcu t.i.d. 11. Sertraline 12.5 mg p.o. at bedtime. ALLERGIES: No known drug allergies. FAMILY HISTORY: The patient tells me he has a family history of diabetes. SOCIAL HISTORY: The patient's and daughter . He has been living with his son. However, his son is going to be a special education bus driver in the near future and will have more difficulty being able to help manage his medication at home. He denies alcohol use, tobacco use, and also drug use. REVIEW OF SYSTEMS: An 11-point review of systems was completed and all pertinent positives and negatives are as above in the HPI. All other systems are negative. PHYSICAL EXAM: General: Obese elderly white male, sitting in chair, appearing comfortable, in no acute distress. Head: Normocephalic, atraumatic. Eyes: PERRLA. Sclerae anicteric. ENT: Mucous membranes moist. Neck: Supple. Lungs: Clear to auscultation throughout. Cardio: Regular rate and rhythm without murmurs, rubs, or gallops. Abdomen: Soft, nontender, nondistended. Extremities: Trace edema bilaterally approximately 5 cm above the ankles. No clubbing or cyanosis. Neuro: The patient is alert and oriented x3. No focal deficits. No tremors. ASSESSMENT AND PLAN: David Marquez is a 64-year-old white male with past medical history significant for diabetes, coronary artery disease, hypertension, chronic kidney disease and depression, who is receiving inpatient treatment on behavioral services unit for depression accompanied by paranoia. Hospitalist medicine has been consulted for medical comanagement in the setting of an episode of hypoglycemia. 1. Diabetes mellitus type 2. Given that this patient has a hemoglobin A1c of 6.8, this represents good control of his diabetes for his age. I will be discontinuing his a.c. schedule short acting insulin and replacing it with sliding scale. I will be cutting his long acting insulin in half and use insulin glargine 35 units subcu daily. I will continue his pioglitazone. We should continue to monitor this to make sure that he does not need further changes. Additionally, he should be following up with his primary care provider after this hospitalization to make sure he has better control of his diabetes manager long term care. The patient should be getting a carbohydrate consistent diet. 2. Hypertension. The patient's blood pressure has been fluctuating; however, the blood pressure was repeated manually today and it was 134/68. This represents good control. We will continue his home carvedilol and losartan. 3. Coronary artery disease. The patient tells me he has chronic lower extremity edema and it is possible that he may have ischemic cardiomyopathy causing this. I put in orders to request his outpatient echocardiogram that was recently performed. However, it appears that there may be some difficulty [facility]. He should have followup regarding this. He tells me he has never had the results reported to him. Otherwise, we will continue his home losartan, aspirin, isosorbide mononitrate, Lipitor, carvedilol. 4. Chronic kidney disease. The patient had a creatinine of 1.36 when he arrived during this hospital stay. I have ordered for his BMP to be repeated to follow up on this. I have additionally [facility] for [facility]; however, as previously mentioned this may be difficult to obtain, but the patient does confirm that he has been told he has chronic kidney disease in the past. 5. Gout. Continue the patient's home allopurinol. 6. Disposition: Per psychiatry team. The patient additionally told me that he may be seeking a different primary care provider. He has [facility] and I discussed with him that that may pose insurance issues. However, if he needs alternate primary care followup, the [facility] will be happy to follow up with him after discharge from [facility]. Thank you for allowing us to participate in the care of this patient. We will follow during this admission. ALEN GAN [id number]/[facility] #: [id number] SUNDAY
[2019-05-28] MEDS: Atorvastatin* 20 MG TAB PO SCH (18:17)
[2019-05-28] MEDS: Acetaminophen TAB* 325 MG PO PRN (18:17)
[2019-05-28 20:25] VITALS: BP 139/80
[2019-05-29] MEDS: Losartan TAB* 25 MG PO SCH (07:40)
[2019-05-29] MEDS: Aspirin EC TAB* 81 MG TAB.EC PO SCH (07:41)
[2019-05-29] MEDS: Sertraline* 50 MG TAB PO SCH (07:41)
[2019-05-29] MEDS: ARIPiprazole TAB* 2 MG PO SCH (07:41)
[2019-05-29] MEDS: Cholecalciferol TAB* 1000 UNITS PO SCH (07:41)
[2019-05-29] MEDS: Acetaminophen TAB* 325 MG PO PRN ×2 (07:42→18:51)
[2019-05-29] MEDS: Allopurinol TAB* 100 MG PO SCH (07:43)
[2019-05-29] MEDS: Isosorbide Mononitrate ER TAB* 30 MG PO SCH (07:43)
[2019-05-29] MEDS: Pioglitazone TAB* 30 MG PO SCH (07:43)
[2019-05-29] MEDS: Carvedilol TAB* 3.125 MG PO SCH (07:43)
[2019-05-29] MEDS: Insulin LISPRO* 1 UNITS UNIT SUBCUT SCH ×3 (07:44→16:38)
--- NOTE | 2019-05-29 10:17 | DS ---
Subjective - Subjective Service Types: [id number] [facility] Day Mgmt complex over 30 min Discharge Date: 05/29/19 Subjective: CC: " I am better" Patient looks forward to seeing his dog. The patient was seen and evaluated before discharge today. The patient reported having adequate appetite and sleep. The patient reports attending and participating in day groups. Per nursing no behavioral issues or overnight events reported. Patient reported tolerating medications without side effects. Justification for admission: Immediate Safety. CC " I have been sad" The patient was brought to [facility] by his son. He has expressed feeling paranoid the last 2-3 weeks but was unable to identify recent changes in his life. He reported recent stressors to be " everything". He is afraid that the government is going to come after him and take his money. He reported feeling sad and depressed lately. He stated that he sometimes thinks people are in his house, and that the [employer] is spying on him with cameras. He denied access to firearms or stockpiles of medications. He reported waking up early in the morning. appetite. He reported getting scared and cutting himself with his fingernail. The patient denied homicidal ideation intent or plan. The patient denied visual hallucinations. The patient reported hearing the voice of his who 16 years ago. MDD Reported feeling depressed with feelings of hopelessness. Reported diminished appetite, interruption of sleep, and feeling tired throughout the day. He has loss of energy with lack of motivation to complete tasks. Anxiety Denied having symptoms of anxiety such as having times where heart feels that it is beating out of chest , sweaty palms, or shallow breathing. Denied having uncomfortable or intrusive thoughts. Denied feeling restless, high strung, or worrying too much most of the time. Bipolar Denied symptoms of radha such as having many ideas at once. Denied increased talkativeness where no one can interrupt. Denied feeling irritable most of the time while having an persistent abundance of energy most of the day without the use of energy drinks, stimulants, or recreational drug use. Denied an increase in intensity in goal directed activities. Denied having the decreased need to sleep for days , having prolonged elevated mood , or feeling on top of the world. Denied impulsive risky sexual encounters. Denied spending money recklessly , going on spending sprees wiping out savings. Denied impulsively traveling out of town or country, having super perez, and unrealistic wealth or fame. Psychosis Does not endorse hearing things that other people do not hear or seeing things other people do not see. Denied feeling that TV is making references. Denied feeling that people are spying , following , or reading their thoughts. Phobias: Patient denied having excessive fear of a particular thing or situation. Eating disorders: Patient denied having excessive eating habits or feelings of guilt after eating. Denied repeated episodes of self induced vomiting after eating. PTSD Denied flashbacks, and avoidance of a prior traumatic event. Reported having frequent nightmares and waking up scared and frightened. PAST PSYCHIATRIC HISTORY: Prior Diagnosis : Unspecified depressive disorder History of past Psychiatric Hospitalizations: No prior psychiatric admission. History of past suicide/homicide attempts : Denied past suicide attempts. Denied past homicidal incidents. Outpatient follow-up: [facility] in [place], [place] Medications: Past trials of medications include zoloft 25mg daily Guardianship: None. FAMILY HISTORY: - Suicide: Denied family history of suicide. - Mental illness: Denied a history of mental health in immediate family members. - Substance abuse: Denied substance abuse among family members. SUBSTANCE ABUSE HISTORY: Denied using alcohol, tobacco, heroin cocaine or other illicit substances. Denied abusing pills for recreational use. Denied past Substance abuse treatment. SOCIAL HISTORY: Denied a history of sexual and or physical abuse in childhood Born in [place] and raised by both parents. His daughter at at 34 from what describes as kidney stones. 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 Status Post angioplasty with 3 stents. - Allergies: Denied drug or other allergies. Physical Exam: Please see ED note Mental Status Exam on Admission APPEARANCE : 64 year old male who appears stated age. He appears obese. Patient is not malodourous, and appears to have fair hygiene and grooming. BEHAVIOR: Cooperative, calm EYE CONTACT: Fair PSYCHOMOTOR ACTIVITY: No psychomotor agitation or retardation. MOVEMENTS: No abnormal movements observed. SPEECH : Normal rate, rhythm, volume and tone. MOOD : "Sad " AFFECT : Type is depressed Range is restricted THOUGHT PROCESS: Formulated and organized in a logical, linear goal directed manner. THOUGHT CONTENT: Paranoid delusions PERCEPTION: No current auditory or visual hallucinations. Doesnt appear to be responding to internal cues. No evidence of depersonalization , de-realization, or illusions SUICIDALITY Denied suicidal ideation, intent or plan. HOMICIDALITY Denied homicidal ideation, intent or plan. Insight/judgment: Poor insight and judgment ORIENTATION: Oriented to self, location, and time. Diagnosis on Admission: Major Depressive Disorder with psychotic features, severe. Diagnosis on Discharge: Major Depressive Disorder with psychotic features, in partial remission. Condition at the time of discharge: At the time of discharge patient showed improvement of sleep and appetite. The patient was not a danger to self or others. The patient denied suicidal ideation, intent or plan. The patient denied homicidal targets, ideation, intent or plan. This patient participated in psychosocial rehabilitation and gained some insight into problems. The patient gained insight into mental illness, triggers, and treatment. The patient took medication as prescribed. The patient denied side effects of medication and objective signs of side effects were not evident. Therapy Resources were offered to the patient. Patient was given a supply of prescriptions at the time of discharge. The patient plans to attend follow up care with the follow up arrangements that were discussed and put in place. Patient was asked to keep appointments as scheduled, take medication as prescribed, have routine follow up care with their primary care physician and refrain from any use of alcohol or drugs. Objective - General Observations Appearance: Neat Appears Stated Age: Yes Stature: Overweight Posture: Slumped Eye Contact: Average Behavior/Activity: WNL - Interaction Observations Attitude Towards Examiner: Cooperative Stated Mood: Euthymic Affect: Full Speech Pattern/Tone: Clear Thought Process: Coherent Perception: WNL Thought Content: WNL Hallucination Type: None Delusion Type: None - Cognitive Function Orientation: A&O x 4 Level of Consciousness: Awake - Medication Compliance Cooperative with Inpatient Medication Regimen: Yes - Group Participation Participates in Group Activities: Yes Treatment Course & Assessment Clinical Course & Impression: Hospital course part A: 64 year old with history of depression came to the hospital expressing paranoid delusions and was admitted to the BSU at [facility]. Hospital course part B: Labs ordered included CBC, CMP, UDS, TSH, HBA1c, TSH, Toxicology screen, Urine analysis, and lipid profile. Labs were reviewed and did not require the need for further evaluation. Vital signs were monitored during the course of admission. EKG ordered for risk of QT prolongation of antipsychotic medication. The patient was admitted to the adult behavioral unit and placed on 15 minute check for safety. At a later time the patient was on Q30 minute observation and staff pass privileges. With those limits being extended, patient was safe on all checks and there were no occurrence of behavioral incidents. The patient did well on the unit and went to groups. Interacted with peers had adequate sleep and regular appetite. Tolerated medication changes without side effects. Group therapy and services were offered. The risks, benefits, and alternative treatment options were discussed as well as of the risks of refusing treatment. Treatment associated risks discussed. After this discussion made an acknowledgement of this understanding. Follow up care appointments were put in place. The importance of monitoring for metabolic changes was discussed and acknowledgement of this understanding was made. The patient was informed not to abruptly stop or start new medications before consulting with a medical professional. Improvements in patient from the time of admission include: Improved affect, sleep and decrease in anxiety. No longer suicidal and no longer having feelings of hopelessness. The patient expressed readiness for discharge home. The patient presents with a broader range of affect, and the absence of depressed mood, delusions, perceptual disturbances. The patient denied suicidal and or homicidal ideation intent or plan. Overall, the patient responded well to inpatient treatment as evidenced by their report of strengthening of coping mechanisms, reduced distress, and more positive outlook on circumstances. Of note there was an improvement of recognizing how emotional state can effect mood and behavior. Safety precautions were put in place which included involving the patient and their family to closely monitor for changes in mental state. In addition, implementing follow up care, screening for the need to remove/securing firearms , weapons and stockpile of medications. Patient/ family instructed to immediately call 911 should any safety concerns arise. AIMS was performed and insignificant for involuntary movement disorders. The patient was advised of the 24 hour / 7 days a week availability of the emergency room and to call 911 in the event of an emergency such as being suicidal and/ or homicidal. The patient was informed of the contact information for [facility], Suicide Prevention and Crisis Services, National Suicide Prevention Lifeline, [facility], Alcoholics Anonymous, and [facility]. Medications started included abilify for paranoia and increased zoloft to 50mg daily for depression. Family meeting took place before discharge. The family confirmed that the patient is at their baseline. At this time both the patient and family are eager for discharge and are in agreement with the discharge plan set forth by the treatment team and can safely receive care in the less restrictive outpatient setting. They were advised on how the days following discharge can be a vulnerable period and to look out for warning signs associated with decompensation and progression of mental illness. They were notified of the resources available in the event these situations arise and confirmed that the patient has no access to firearms or stock piles of medications. Consults included to hospitalist for the treatment of diabetes, elevated Cr, and hypertension. Patient was not assaultive or a behavioral problem during the course of admission. The patient showed improvement of hygiene and was able to carry out activities of daily living. The patient acknowledged that he may have been reading into his increased paranoia, and said I no longer think the government is after me. Patient will be discharged to live at home. Follow up appointment at the [facility]. Patient received medications from outpatient pharmacy before discharge. Patient informed of follow up appointment times. See more details for follow up care in the discharge plan. Risk factors were mitigated by establishing the patients baseline with close contacts and arranging a family meeting. Implementing precautionary safety measures by confirming no stockpiles of medications and no access to firearms , providing mental health treatment, offering substance abuse resources, substance abuse therapy groups, stabilization of depressive features, arrangement of outpatient continuation of care, as well as provided a supportive care environment and therapy resources during the course of hospitalization. Provided Trauma focused therapy. Risk factors: , Age, , history of depression. Protective factors: Currently no suicidal ideation, intent or plan. No suicide attempts in the last year. Has multiple medical conditions. Caodaism, has children. Has son for his support system. Currently no feelings of hopelessness, , no family history of suicide, doesnt have access to firearms. Doesnt have command hallucinations and or psychotic features at this time. No current substance abuse. No current alcohol abuse. Not an anniversary of a loss of a loved one. No changes in relationship status, housing, job, or school. Currently future orientated. Patient engaged in treatment and compliant with medication. Sodium 136 mmol/L (135-145) 05/28/19 13:21 Potassium 4.6 mmol/L (3.5-5.0) 05/28/19 13:21 BUN 24 mg/dL (6-24) 05/28/19 13:21 Creatinine 1.67 mg/dL (0.67-1.17) H 05/28/19 13:21 Hemoglobin A1c 6.8 % (4.0-5.6) H 05/26/19 08:20 Calcium 9.2 mg/dL (8.6-10.3) 05/28/19 13:21 AST 13 U/L (13-39) 05/25/19 12:04 ALT 16 U/L (7-52) 05/25/19 12:04 Triglycerides 102 mg/dL 05/26/19 08:20 Cholesterol 121 mg/dL 05/26/19 08:20 LDL Cholesterol 71 mg/dL 05/26/19 08:20 Vital Signs Temp Pulse Resp BP Pulse Ox 98.5 F 80 16 139/80 99 05/28/19 08:00 05/28/19 20:20 05/28/19 11:10 05/28/19 20:20 05/28/19 20:20 Merits Inpatient Hospitalization: No Clear for Discharge: Adequate Clinical Respons Discharge Planning - Discharge Planning Discharge Plan: Outpatient Follow [facility] Recommendations for Continuing Care: Medication Management Medications: Current Medications Acetaminophen (Tylenol Tab*) 650 mg PO Q4H PRN PRN Reason: for pain; or Temp >101 F Last Admin: 05/29/19 07:42 Dose: 650 mg Al Hydrox/Mg Hydrox/Simethicone (Maalox Plus*) 30 ml PO Q4H PRN PRN Reason: INDIGESTION Allopurinol (Zyloprim Tab*) 200 mg PO DAILY [facility] Last Admin: 05/29/19 07:43 Dose: 200 mg Aripiprazole (Abilify Tab*) 2 mg PO DAILY [facility] Last Admin: 05/29/19 07:41 Dose: 2 mg Aspirin (Aspirin Ec Tab*) 81 mg PO DAILY [facility] Last Admin: 05/29/19 07:41 Dose: 81 mg Atorvastatin Calcium (Lipitor*) 20 mg PO QPM [facility] Last Admin: 05/28/19 18:17 Dose: 20 mg Carvedilol (Coreg Tab*) 3.125 mg PO BID [facility] Last Admin: 05/29/19 07:43 Dose: 3.125 mg Cholecalciferol (Vitamin D Tab*) 1,000 units PO DAILY [facility] Last Admin: 05/29/19 07:41 Dose: 1,000 units Dextrose (Dextrose 50% Vial 50 Ml*) 25 ml IV PUSH .FOR FS < 60 - SS PRN PRN Reason: FS < 60 Hydroxyzine HCl (Atarax Tab*) 50 mg PO Q6H PRN PRN Reason: anxiety Insulin Glargine (Lantus(*)) 35 units SUBCUT 2100 [facility] Insulin Human Lispro (Humalog*) 0 units SUBCUT AC [facility]; Protocol Last Admin: 05/29/19 07:44 Dose: 2 units Isosorbide Mononitrate (Imdur Er Tab*) 30 mg PO DAILY [facility] Last Admin: 05/29/19 07:43 Dose: 30 mg Losartan Potassium (Cozaar Tab*) 50 mg PO DAILY [facility] Last Admin: 05/29/19 07:40 Dose: 50 mg Pioglitazone HCl (Actos Tab*) 30 mg PO DAILY [facility] Last Admin: 05/29/19 07:43 Dose: 30 mg Sertraline HCl (Zoloft*) 50 mg PO DAILY [facility] Last Admin: 05/29/19 07:41 Dose: 50 mg Discharge Planning: Prescriptions provided for discharge [x] Yes [] No Follow up care details as per social work arrangements. Patient response to discharge plan: [x] eager for discharge [] agreeable with discharge plan [] ambivalent about discharge [] disagrees with discharge today
--- NOTE | 2019-05-29 16:12 | DS ---
CC: Dr. Powell; Dr. Healy; Fani Tracy NP from the [place] service * INTERNAL MEDICINE DISCHARGE SUMMARY: DATE OF ADMISSION: 05/25/19 DATE OF DISCHARGE: 05/29/19 DISPOSITION AT DISCHARGE: Home. CONDITION AT DISCHARGE: Stable. DISCHARGE DIAGNOSIS: As per Dr. Powell, the patient's primary attending discharge summary dictated on 05/29/19. SECONDARY DIAGNOSES: 1. History of hypertension. 2. History of depression. 3. Insulin-dependent diabetes. 4. History of chronic kidney disease, unknown stage. 5. History of coronary artery disease, status post 3 stents in the past. 6. Gout. MEDICATIONS AT DISCHARGE: Include, 1. Allopurinol 200 mg daily. 2. Aspirin 81 mg daily. 3. Lipitor 20 mg daily. 4. Coreg 3.125 mg b.i.d. 5. Vitamin D3 of 1000 mg daily. 6. Imdur 30 mg daily. 7. Losartan 50 mg daily. 8. Actos 30 mg daily. 9. Abilify 2 mg daily. 10. Insulin aspart 5 units with each meal 3 times a day. 11. Insulin Levemir 35 units subcutaneously daily. 12. Imdur 30 mg daily. 13. Losartan 50 mg daily. 14. Zoloft 50 mg daily. LABORATORY DATA DURING THE HOSPITAL STAY: Included sodium of 136, potassium 4.6 , chloride 105, carbon dioxide 26, BUN 24, creatinine 1.67. Hemoglobin A1c was 6.8. The patient's glucose numbers ranged between 104 to 150 in the past 24 hours. The patient's CBC was unremarkable at admission. HOSPITALIZATION COURSE: Internal medicine service was involved with the patient 's care in regards to his diabetic management. His hemoglobin A1c was noted to be 6.8. Once admitted, the patient was noted to have episodes of hypoglycemia with sugar level of 44. The patient stated that at home, he would have multiple episodes of nighttime hypoglycemia when he would wake up sweaty and shivering and at that point stated that his small dog would wake him up and the patient felt that that dog knew that something was wrong. He would have his sugar checked at that point and will be low and he would eat. He has not adjusted his insulin as outpatient. Here, his insulin was adjusted from 70 units daily to 35 units of long- acting insulin. His aspart was at 34 units 3 times a day with meals, we lowered it to 5 units with meals. I continued to use his Actos. The patient stated that he has history of chronic kidney disease , but he is not aware of his creatinine at baseline. We are unable to get the records in time prior to the patient's discharge that was request from the [place] office. I presumed the patient's creatinine ranges at the level of 1.5 to 1.6 since the patient stated that approximately 4 years ago, his metformin was usually discontinued when the patient's creatinine is above 1.5. Nevertheless, he is recommended after discharge to follow up with his primary care provider with regard of management of his chronic kidney disease and followup of that since his creatinine here was 1.3, at admission 1.6, measured the second time just yesterday. In regards to pt's insulin, but it may be beneficial from the patient to have a slightly tighter control later on once his diet and mood stabilizes. Please note that this is a short internal medicine discharge addendum to the patient's psychiatric discharge. The patient was hospitalized at the psychiatric unit at [facility]. [id number]/[facility] #: [id number] SUNDAY
[2019-05-29] MEDS: Atorvastatin* 20 MG TAB PO SCH (18:51)
[2019-05-29] MEDS ORDERED: Insulin GLARGINE(*) 1 UNITS UNIT SUBCUT SCH (21:00)
== END 2019-05-29 19:05 | disposition home or self-care (01) | DRG 885 ==
LOC: ED 10:45 → BSU 14:21
PROVIDERS: ADMIT Psychiatry & Neurology Psychiatry; ATTEND Psychiatry & Neurology Psychiatry
DX: F33.3 Major depressive disorder, recurrent, severe with psychotic symptoms (principal); E11.22 Type 2 diabetes mellitus with diabetic chronic kidney disease; E11.649 Type 2 diabetes mellitus with hypoglycemia without coma; I12.9 Hypertensive chronic kidney disease with stage 1 through stage 4 chronic kidney disease, or unspecified chronic kidney disease; N18.9 Chronic kidney disease, unspecified; I25.10 Atherosclerotic heart disease of native coronary artery without angina pectoris; M10.9 Gout, unspecified; E66.9 Obesity, unspecified; Z68.38 Body mass index [BMI] 38.0-38.9, adult; Z79.4 Long term (current) use of insulin; Z95.5 Presence of coronary angioplasty implant and graft; Z79.82 Long term (current) use of aspirin; Z79.899 Other long term (current) drug therapy; Z79.1 Long term (current) use of non-steroidal anti-inflammatories (NSAID); Z83.3 Family history of diabetes mellitus
CPT/HCPCS: 36415; 70450; 80048; 80053; 80061; 80307; 80320; 80329; 81003; 82947; 83036; 84443; 85025; 90853; 93005; 99222; 99231; 99233; 99238; 99285; A9270-GY; G0480; J1815